=== PATIENT | female | born 1970 ===

== ENCOUNTER 2025-01-04 11:26 | Inpatient (IN) | payer OTHER ==
[~2025-01-04] VITALS: Ht 154.9 cm; Wt 59.0 kg
[~2025-01-04 11:26] MED LIST: BUSPAR 10MG; PREVACID; SEROQUEL25 MG PO; WELLBUTRIN SR100 MG; ZOLOFT50 MG
[2025-01-10] MEDS ORDERED: CEFTRIAXONE SODIUM 2,000 MG VIAL ONE (11:51)
[2025-01-10] MEDS ORDERED: METRONIDAZOLE/SODIUM CHLORIDE 500 MG/100 ML PIGGYBACK IV ONE ×2 (11:52→17:45)
[2025-01-10] MEDS ORDERED: OxyCODONE HCL 5 MG TABLET (ROXICODONE) PO PRN (16:15)
[2025-01-10] MEDS ORDERED: 0.9 % SODIUM CHLORIDE 1,000 ML IV SCH (16:15)
[2025-01-10] MEDS ORDERED: ONDANSETRON HCL 2 MG/ML VIAL IV PRN (16:15)
[2025-01-10] MEDS ORDERED: DEXTROSE 50 % IN WATER 0.5 G/ML DISP.SYRIN IV PRN (16:15)
[2025-01-10] MEDS ORDERED: MORPHINE SULFATE 4 MG/ML CARTRIDGE IV PRN (16:15)
[2025-01-10] MEDS ORDERED: MORPHINE SULFATE 4 MG/ML VIAL IV ONE ×2 (16:50→17:50)
[2025-01-10] MEDS ORDERED: METRONIDAZOLE/SODIUM CHLORIDE 500 MG/100 ML PIGGYBACK IV SCH (17:00)
[2025-01-10] MEDS ORDERED: POLYETHYLENE GLYCOL 3350 17 GM BLIST.PACK PO SCH (17:00)
[2025-01-10] MEDS ORDERED: HYOSCYAMINE SULFATE 0.125 MG TAB.SUBL SL SCH (17:00)
[2025-01-10] MEDS ORDERED: GABAPENTIN 300 MG CAPSULE PO SCH (17:00)
[2025-01-10 19:14] LABS: BASO % 0.2 % (0.1-1.2); EOS # 0.02 (0.04-0.54); EOS % 0.1 % (0.7-7.0); LYMPH # 1.09 (1.18-3.74); LYMPH % 7.8 % (19.3-53.1); MEAN PLATELET VOLUME 9.60 fl (9.4-12.4); MONO # 0.59 (0.24-0.82); MONO % 4.2 % (4.7-12.5); NEUT # 12.27 (1.56-6.13); NEUT % 87.5 % (34.0-71.1); RED CELL DISTRIBUTION WIDTH 13.1 % (11.6-14.4)
[2025-01-10 19:34] LABS: BUN CREA RATIO 11.0 (7.0-25.0); CREATININE SERUM 0.74 mg/dL (0.55-1.02); GFR 81.78; GLUCOSE FASTING 142.0 mg/dL (65-100); OSMOLALITY SERUM 278.0 MOSM/KG (275-295)
[2025-01-10] MEDS ORDERED: ACETAMINOPHEN 500 MG GEL..CAP PO SCH (20:00)
[2025-01-10] MEDS ORDERED: CELECOXIB 200 MG CAPSULE PO SCH (21:00)
[2025-01-10] MEDS ORDERED: FAMOTIDINE/PF 20 MG/2 ML VIAL IV PUSH SCH (21:00)
[2025-01-10] MEDS ORDERED: SERTRALINE HCL 50 MG TABLET PO SCH (21:00)
[2025-01-10] MEDS ORDERED: QUETIAPINE FUMARATE 25 MG TABLET PO SCH (21:00)
[2025-01-10] MEDS ORDERED: BUSPAR 10 MG PO SCH (21:00)
[2025-01-10] MEDS ORDERED: FAMOTIDINE/PF 20 MG/2 ML VIAL ONE (23:17)
[2025-01-11] MEDS ORDERED: ACETAMINOPHEN 500 MG GEL..CAP PO ONE (00:07)
[2025-01-11] MEDS ORDERED: METRONIDAZOLE/SODIUM CHLORIDE 500 MG/100 ML PIGGYBACK IV ONE (00:07)
[2025-01-11] MEDS ORDERED: GABAPENTIN 300 MG CAPSULE PO ONE (00:07)
[2025-01-11 01:15] VITALS: BP 117/80; O2SAT 97
[2025-01-11 07:44] LABS: BASO % 0.2 % (0.1-1.2); EOS # 0.02 (0.04-0.54); EOS % 0.1 % (0.7-7.0); LYMPH # 1.95 (1.18-3.74); LYMPH % 12.0 % (19.3-53.1); MEAN PLATELET VOLUME 9.60 fl (9.4-12.4); MONO # 0.84 (0.24-0.82); MONO % 5.2 % (4.7-12.5); NEUT # 13.32 (1.56-6.13); NEUT % 82.1 % (34.0-71.1); RED CELL DISTRIBUTION WIDTH 13.0 % (11.6-14.4)
[2025-01-11 08:29] LABS: BUN CREA RATIO 11.0 (7.0-25.0); CREATININE SERUM 0.71 mg/dL (0.55-1.02); GFR 85.78; GLUCOSE FASTING 108.0 mg/dL (65-100); OSMOLALITY SERUM 269.0 MOSM/KG (275-295)
[2025-01-11] MEDS ORDERED: WELLBUTRIN 100 MG PO SCH (09:00)
[2025-01-11] MEDS ORDERED: BUSPIRONE HCL 5 MG TABLET PO SCH (09:00)
[2025-01-11 09:04] VITALS: BP 113/74; O2SAT 98
[2025-01-11] MEDS ORDERED: MAGNESIUM SULFATE IN WATER 50 ML IV NR (10:30)
[2025-01-11 14:00] VITALS: BP 108/69; O2SAT 97
[2025-01-11] MEDS ORDERED: ROSUVASTATIN CALCIUM 10 MG TABLET PO SCH (17:00)
[2025-01-11] MEDS ORDERED: ENOXAPARIN SODIUM 40 MG/0.4 ML SYRINGE SUBCUTANEO SCH (17:00)
[2025-01-11] MEDS ORDERED: QUETIAPINE FUMARATE 25 MG TABLET PO SCH (21:00)
[2025-01-11] MEDS ORDERED: SERTRALINE HCL 50 MG TABLET PO SCH (21:00)
[2025-01-12 00:33] VITALS: BP 110/67; O2SAT 98
[2025-01-12 07:30] LABS: BASO % 0.4 % (0.1-1.2); EOS # 0.08 (0.04-0.54); EOS % 0.8 % (0.7-7.0); LYMPH # 1.22 (1.18-3.74); LYMPH % 12.3 % (19.3-53.1); MEAN PLATELET VOLUME 9.80 fl (9.4-12.4); MONO # 0.65 (0.24-0.82); MONO % 6.5 % (4.7-12.5); NEUT # 7.91 (1.56-6.13); NEUT % 79.6 % (34.0-71.1); RED CELL DISTRIBUTION WIDTH 12.9 % (11.6-14.4)
[2025-01-12 08:00] VITALS: BP 119/79; O2SAT 99
[2025-01-12 08:15] LABS: BUN CREA RATIO 11.0 (7.0-25.0); CREATININE SERUM 0.57 mg/dL (0.55-1.02); GFR 110.53; GLUCOSE FASTING 96.0 mg/dL (65-100); OSMOLALITY SERUM 275.0 MOSM/KG (275-295)
[2025-01-12] MEDS ORDERED: ENOXAPARIN SODIUM 40 MG/0.4 ML SYRINGE SUBCUTANEO SCH (09:00)
[2025-01-12 16:39] VITALS: BP 103/66; O2SAT 99
[2025-01-12] MEDS ORDERED: SIMETHICONE 125 MG CAPSULE PO SCH (19:09)
[2025-01-12] MEDS ORDERED: MORPHINE SULFATE 4 MG/ML CARTRIDGE IV PRN (19:30)
[2025-01-12] MEDS ORDERED: OxyCODONE HCL 5 MG TABLET (ROXICODONE) PO PRN (19:45)
[2025-01-13 00:36] VITALS: BP 125/78; O2SAT 100
[2025-01-13 08:00] VITALS: BP 126/77; O2SAT 99
[2025-01-13 16:07] VITALS: BP 120/75; O2SAT 95
[2025-01-13] MEDS ORDERED: CIPROFLOXACIN IN 5 % DEXTROSE 200 ML IV SCH (17:00)
[2025-01-13] MEDS ORDERED: LACTOBACILLUS ACIDOPHILUS 1 CAP CAP PO NR (18:15)
[2025-01-13] MEDS ORDERED: POLYETHYLENE GLYCOL 3350 17 GM BLIST.PACK PO SCH (21:00)
[2025-01-14 00:52] VITALS: BP 129/75; O2SAT 95
[2025-01-14 07:00] LABS: BASO % 0.3 % (0.1-1.2); EOS # 0.25 (0.04-0.54); EOS % 3.5 % (0.7-7.0); LYMPH # 1.90 (1.18-3.74); LYMPH % 26.5 % (19.3-53.1); MEAN PLATELET VOLUME 9.90 fl (9.4-12.4); MONO # 0.49 (0.24-0.82); MONO % 6.8 % (4.7-12.5); NEUT # 4.48 (1.56-6.13); NEUT % 62.6 % (34.0-71.1); RED CELL DISTRIBUTION WIDTH 13.0 % (11.6-14.4)
[2025-01-14 07:42] LABS: ALT/SGPT 17.0 U/L (12-78); AST/SGOT 11.0 U/L (15-37); BILIRUBIN TOTAL 0.32 mg/dL (0.3-1.2); BUN CREA RATIO 10.0 (7.0-25.0); CREATININE SERUM 0.52 mg/dL (0.55-1.02); GFR 122.88; GLOBULINA 2.7 G/DL (2.4-3.5); GLUCOSE FASTING 117.0 mg/dL (65-100); OSMOLALITY SERUM 285.0 MOSM/KG (275-295)
[2025-01-14 08:00] VITALS: BP 134/82; O2SAT 98
[2025-01-14] MEDS ORDERED: LACTOBACILLUS ACIDOPHILUS 1 CAP CAP PO SCH (09:00)
[2025-01-14] MEDS ORDERED: SOD FERRIC GLUC COMPLX/SUCROSE 62.5 MG in 0.9 % SODIUM CHLORIDE 50 ML IV SCH (09:17)
[2025-01-14] MEDS ORDERED: Cyanocobalamin/Mecobalamin 1 TAB.SL SL SCH (09:17)
[2025-01-14] MEDS ORDERED: MAGNESIUM SULFATE IN WATER 50 ML IV NR (10:20)
[2025-01-14 16:00] VITALS: BP 126/79; O2SAT 97
[2025-01-15 00:29] VITALS: BP 105/71; O2SAT 100
[2025-01-15 09:25] VITALS: BP 127/79; O2SAT 96
[2025-01-15 16:05] VITALS: BP 131/88; O2SAT 97
[2025-01-16 00:44] VITALS: BP 126/78; O2SAT 100
[2025-01-16 08:05] VITALS: BP 119/77; O2SAT 96
[2025-01-16 16:52] VITALS: BP 124/86; O2SAT 98
[2025-01-17 00:39] VITALS: BP 132/74; O2SAT 100
[2025-01-17 07:03] LABS: BASO % 0.4 % (0.1-1.2); EOS # 0.41 (0.04-0.54); EOS % 4.4 % (0.7-7.0); LYMPH # 1.96 (1.18-3.74); LYMPH % 21.1 % (19.3-53.1); MEAN PLATELET VOLUME 9.30 fl (9.4-12.4); MONO # 0.72 (0.24-0.82); MONO % 7.7 % (4.7-12.5); NEUT # 6.11 (1.56-6.13); NEUT % 65.6 % (34.0-71.1); RED CELL DISTRIBUTION WIDTH 13.1 % (11.6-14.4)
[2025-01-17 07:55] LABS: ALT/SGPT 45.0 U/L (12-78); AST/SGOT 58.0 U/L (15-37); BILIRUBIN TOTAL 0.29 mg/dL (0.3-1.2); BUN CREA RATIO 8.0 (7.0-25.0); CREATININE SERUM 0.72 mg/dL (0.55-1.02); GFR 84.41; GLOBULINA 3.4 G/DL (2.4-3.5); GLUCOSE FASTING 109.0 mg/dL (65-100); OSMOLALITY SERUM 285.0 MOSM/KG (275-295)
[2025-01-17] MEDS ORDERED: DIPHENHYDRAMINE HCL 50 MG/ML VIAL 1ML IV NR (10:00)
[2025-01-17] MEDS ORDERED: METHYLPREDNISOLONE SOD SUCC 40 MG VIAL IV NR (10:00)
[2025-01-17] MEDS ORDERED: DIATRIZOATE MEGLUMINE, SODIUM 30 ML BOTTLE PO NR (10:30)
[2025-01-17] MEDS ORDERED: MORPHINE SULFATE 4 MG/ML CARTRIDGE IV PRN (11:45)
[2025-01-17] MEDS ORDERED: OxyCODONE HCL 5 MG TABLET (ROXICODONE) PO PRN (11:45)
[2025-01-17 16:00] VITALS: BP 172/92; O2SAT 98
[2025-01-17 20:00] VITALS: BP 154/84; O2SAT 97
[2025-01-18 01:32] VITALS: BP 133/75; O2SAT 100
[2025-01-18 08:00] VITALS: BP 133/88; O2SAT 96
[2025-01-18 15:00] LABS: BASO % 0.4 % (0.1-1.2); EOS # 0.29 (0.04-0.54); EOS % 2.8 % (0.7-7.0); LYMPH # 2.07 (1.18-3.74); LYMPH % 19.8 % (19.3-53.1); MEAN PLATELET VOLUME 9.30 fl (9.4-12.4); MONO # 0.67 (0.24-0.82); MONO % 6.4 % (4.7-12.5); NEUT # 7.31 (1.56-6.13); NEUT % 69.9 % (34.0-71.1); RED CELL DISTRIBUTION WIDTH 13.2 % (11.6-14.4)
[2025-01-18 15:10] LABS: INR 1.15
[2025-01-18 15:29] LABS: ALT/SGPT 150.0 U/L (12-78); AST/SGOT 193.0 U/L (15-37); BILIRUBIN TOTAL 0.38 mg/dL (0.3-1.2); BILIRUBIN,CONJUGATED 0.13 mg/dL (0.0-0.2); BUN CREA RATIO 19.0 (7.0-25.0); CHOL HDL RATIO 1.6 (0-5.0); CREATININE SERUM 0.54 mg/dL (0.55-1.02); GFR 117.65; GLOBULINA 2.8 G/DL (2.4-3.5); GLUCOSE FASTING 108.0 mg/dL (65-100); HDL 61.0 mg/dl (40-60); LDL 14.0 mg/dl (0-130); OSMOLALITY SERUM 285.0 MOSM/KG (275-295); VLDL 23.0 (0-39)
[2025-01-18 17:00] VITALS: BP 121/74; O2SAT 95
[2025-01-18] MEDS ORDERED: AA 4.25%/CALCIUM/LYTES/DEX 10% 1,000 ML CENTRAL SCH (17:00)
[2025-01-19 00:58] VITALS: BP 116/78; O2SAT 95
[2025-01-19 08:00] VITALS: BP 143/86; O2SAT 97
[2025-01-19 09:12] LABS: ALT/SGPT 122.0 U/L (12-78); AST/SGOT 96.0 U/L (15-37); BILIRUBIN TOTAL 0.26 mg/dL (0.3-1.2); BILIRUBIN,CONJUGATED 0.12 mg/dL (0.0-0.2); BUN CREA RATIO 21.0 (7.0-25.0); CREATININE SERUM 0.52 mg/dL (0.55-1.02); GFR 122.88; GLUCOSE FASTING 113.0 mg/dL (65-100); OSMOLALITY SERUM 281.0 MOSM/KG (275-295)
[2025-01-19 16:00] VITALS: BP 146/88; O2SAT 96
[2025-01-20 01:18] VITALS: BP 114/75; O2SAT 100
[2025-01-20 08:17] VITALS: BP 101/60; O2SAT 97
[2025-01-20 16:00] VITALS: BP 124/80; O2SAT 99
[2025-01-20] MEDS ORDERED: AA 4.25%/CALCIUM/LYTES/DEX 10% 1,000 ML CENTRAL NR (19:00)
[2025-01-21 00:52] VITALS: BP 101/82; O2SAT 96
[2025-01-21] MEDS ORDERED: AA 4.25%/CALCIUM/LYTES/DEX 10% 1,000 ML CENTRAL SCH (05:00)
[2025-01-21 08:23] VITALS: BP 108/70; O2SAT 96
[2025-01-21] MEDS ORDERED: TRAMADOL HCL 50 MG TABLET PO PRN (12:00)
[2025-01-21 17:39] VITALS: BP 126/81; O2SAT 100
[2025-01-22 01:50] VITALS: BP 124/73; O2SAT 100
[2025-01-22 08:03] LABS: BASO % 1.0 % (0.1-1.2); EOS # 0.36 (0.04-0.54); EOS % 4.4 % (0.7-7.0); LYMPH # 2.28 (1.18-3.74); LYMPH % 27.9 % (19.3-53.1); MEAN PLATELET VOLUME 9.50 fl (9.4-12.4); MONO # 0.56 (0.24-0.82); MONO % 6.9 % (4.7-12.5); NEUT # 4.85 (1.56-6.13); NEUT % 59.4 % (34.0-71.1); RED CELL DISTRIBUTION WIDTH 13.5 % (11.6-14.4)
[2025-01-22 08:17] VITALS: BP 122/81; O2SAT 99
[2025-01-22 08:32] LABS: BUN CREA RATIO 17.0 (7.0-25.0); CREATININE SERUM 0.58 mg/dL (0.55-1.02); GFR 108.33; GLUCOSE FASTING 92.0 mg/dL (65-100); OSMOLALITY SERUM 282.0 MOSM/KG (275-295)
[2025-01-22] MEDS ORDERED: METHYLPREDNISOLONE SOD SUCC 40 MG VIAL IV NR (10:30)
[2025-01-22] MEDS ORDERED: DIPHENHYDRAMINE HCL 50 MG/ML VIAL 1ML IV NR (10:30)
[2025-01-22] MEDS ORDERED: DIATRIZOATE MEGLUMINE, SODIUM 30 ML BOTTLE PO NR (11:00)
[2025-01-22 16:00] VITALS: BP 134/84; O2SAT 98
[2025-01-23 01:00] VITALS: BP 129/79; O2SAT 97
[2025-01-23 08:00] VITALS: BP 145/85; O2SAT 100
[2025-01-23] MEDS ORDERED: DICYCLOMINE HCL 20 MG TABLET PO SCH (13:00)
[2025-01-23] MEDS ORDERED: TRAMADOL HCL 50 MG TABLET PO PRN (15:00)
[2025-01-23 16:00] VITALS: BP 150/88; O2SAT 98
[2025-01-24] VITALS: BP 135/87; O2SAT 98
[2025-01-24 06:52] LABS: BASO % 0.9 % (0.1-1.2); EOS # 0.27 (0.04-0.54); EOS % 2.8 % (0.7-7.0); LYMPH # 2.35 (1.18-3.74); LYMPH % 24.8 % (19.3-53.1); MEAN PLATELET VOLUME 9.60 fl (9.4-12.4); MONO # 0.69 (0.24-0.82); MONO % 7.3 % (4.7-12.5); NEUT # 6.05 (1.56-6.13); NEUT % 63.9 % (34.0-71.1); RED CELL DISTRIBUTION WIDTH 13.7 % (11.6-14.4)
[2025-01-24 07:10] LABS: INR 1.14
[2025-01-24 07:28] LABS: ALT/SGPT 51 U/L (12-78); AST/SGOT 18 U/L (15-37); BILIRUBIN TOTAL 0.28 mg/dL (0.3-1.2); BILIRUBIN,CONJUGATED < 0.10 mg/dL (0.0-0.2); BUN CREA RATIO 24 (7.0-25.0); CHOL HDL RATIO 2.2 (0-5.0); CREATININE SERUM 0.49 mg/dL (0.55-1.02); GFR 131.61; GLOBULINA 2.8 G/DL (2.4-3.5); GLUCOSE FASTING 116 mg/dL (65-100); HDL 53 mg/dl (40-60); LDL 41 mg/dl (0-130); OSMOLALITY SERUM 286 MOSM/KG (275-295); VLDL 21 (0-39)
[2025-01-24 08:00] VITALS: BP 135/87; O2SAT 99
[2025-01-24 08:57] LABS: UREA CLEARANCE 64.0 ML/MIN
[2025-01-24 16:00] VITALS: BP 129/86; O2SAT 100
[2025-01-25 01:26] VITALS: BP 118/69; O2SAT 98
[2025-01-25] MEDS ORDERED: CELECOXIB200 MG PO (08:49)
[2025-01-25] MEDS ORDERED: NEURONTIN300 MG PO (08:50)
[2025-01-25] MEDS ORDERED: INTESTINEX680 M1 PO (08:50)
[2025-01-25] MEDS ORDERED: LEVSIN/SL0.125 MG SL (08:50)
== END 2025-01-25 09:19 | disposition home or self-care (01) | DRG 330 ==
LOC: SURH 01-10 12:15 → O/R 01-10 12:18 → SURH 01-10 16:31
PROVIDERS: Internal Medicine; Internal Medicine Geriatric Medicine; Specialist; ADMIT Surgery; ATTEND Surgery
PROC: 07BC3ZX Excision of Pelvis Lymphatic, Percutaneous Approach, Diagnostic (ICD-10-PCS; 2025-01-10)
PROC: 0DTF4ZZ Resection of Right Large Intestine, Percutaneous Endoscopic Approach (ICD-10-PCS; principal; 2025-01-10 18:00)
PROC: BW21ZZZ Computerized Tomography (CT Scan) of Abdomen and Pelvis (ICD-10-PCS; 2025-01-17)
PROC: 02HV33Z Insertion of Infusion Device into Superior Vena Cava, Percutaneous Approach (ICD-10-PCS; 2025-01-18)
PROC: BW21ZZZ Computerized Tomography (CT Scan) of Abdomen and Pelvis (ICD-10-PCS; 2025-01-22)
DX: C18.2 Malignant neoplasm of ascending colon (principal); K56.600 Partial intestinal obstruction, unspecified as to cause; R59.0 Localized enlarged lymph nodes; R14.0 Abdominal distension (gaseous); D64.9 Anemia, unspecified; D50.0 Iron deficiency anemia secondary to blood loss (chronic)